=== PATIENT | female | born 1995 | race Caucasian/White ===

== ENCOUNTER 2016-06-25 20:36 | Emergency (ER) | payer BC ==
--- NOTE | 2016-07-03 14:40 | ER ---
ADMIT: 06/25/2016 RM/LOC: ER [facility] MR#: [id number] [address] [id number] NARENDRA NEGRON [address] [place] [phone] Emergency Room Report SEX: F AGE: 20 : 1995 DATE: 06/25/2016 ADDENDUM: This patient comes to the ER because she is having a lot of vaginal drainage and she is concerned she might have an STD. She is currently 14 weeks . In the emergency room, we did get heart tones at 169. Her abdomen is soft, nontender to palpation. On vaginal exam, she does have a cervicitis with quite a bit of vaginal drainage. It does smell very much like Gardnerella. Her wet mount came back negative. However, her Coumadin was positive. I did write a prescription for Metrogel vaginal suppositories and she was given 1 g of Zithromax. She also had a urinary tract infection and she was started on Macrobid. We will have her keep her appointment with Dr. Smiley. DIAGNOSES: 1. Chlamydia. 2. Urinary tract infection. 3. Fourteen weeks' gestation. AMARI Grossman / Nirmal Jones MD / cathleenl JOB #: [id number] CC: Nirmal Jones MD, Attending Physician Rachel Smiley MD, Family Physician
== END 2016-06-25 22:55 | disposition home or self-care (01) ==
LOC: ER 20:36
DX: O23.41 Unspecified infection of urinary tract in pregnancy, first trimester (principal); O98.811 Other maternal infectious and parasitic diseases complicating pregnancy, first trimester; Z3A.14 14 weeks gestation of pregnancy